=== PATIENT | male | born 1975 | race Caucasian/White ===

== ENCOUNTER 2017-09-19 13:38 | Emergency (ER) | payer BC ==
[~2017-09-19] VITALS: Ht 172.7 cm; Wt 72.0 kg
[2017-09-19 13:44] VITALS: BP 105/57; PULSE 88; RESP 18; TEMP 98.4; O2SAT 97
--- NOTE | 2017-09-19 14:45 | PD ---
HPI Chief Complaint: Cold / Flu Symptoms Time Seen by Provider: 14:33 Travel History International Travel<30 days: No Contact w/Intl Traveler<30days: No Traveled to known affect area: No History of Present Illness HPI 42-year-old male here with body ache, fever, cough 2 days. Symptom severity is moderate. No aggravating or alleviating factors. No sick contacts at home. PFSH Past Medical History Medical History: Denies Significant Hx Diminished Hearing: No Tetanus Vaccination: Unknown Influenza Vaccination: No ?: Not Past Surgical History Appendectomy: Yes Social History Alcohol Use: No Tobacco Use: No Substance Use: No Allergies-Medications (Allergen,Severity, Reaction): Coded Allergies: mushroom (Verified Allergy, Intermediate, HIVES, 09/19/17) Reported Meds & Prescriptions Reported Meds & Active Scripts Active No Active Prescriptions or Reported Medications Review of Systems Except as stated in HPI: all other systems reviewed are Neg General / Constitutional: Positive: Fever Eyes: No: Visual changes HENT: No: Headaches Cardiovascular: No: Chest Pain or Discomfort Respiratory: Positive: Cough Gastrointestinal: No: Abdominal Pain Genitourinary: No: Dysuria Musculoskeletal: Positive: Myalgias Skin: No Rash Neurologic: No: Weakness Physical Exam Narrative GENERAL: 42-year-old alert male. Nontoxic appearing. SKIN: Warm and dry. HEAD: Normocephalic. EYES: Pupils equal, round, reactive. No injection or drainage. THROAT: Mild pharyngeal erythema without tonsillar hypertrophy or exudate. NECK: Supple, trachea midline. No JVD or lymphadenopathy. No meningismus. CARDIOVASCULAR: Regular rate and rhythm without murmurs, gallops, or rubs. RESPIRATORY: Breath sounds equal bilaterally. No accessory muscle use. GASTROINTESTINAL: Abdomen soft, non-tender, nondistended. MUSCULOSKELETAL: No cyanosis, or edema. BACK: Nontender without obvious deformity. No CVA tenderness. Data Data Last Documented VS Vital Signs Date Time Temp Pulse Resp B/P (MAP) Pulse Ox O2 Delivery O2 Flow Rate FiO2 09/19/17 13:44 98.4 88 18 105/57 (73) 97 Orders Orders Influenzae A/B Antigen (09/19/17 14:32) MDM Medical Decision Making Medical Screen Exam Complete: Yes Emergency Medical Condition: Yes Interpretation(s) Influenza is negative Differential Diagnosis Influenza, viral URI, bronchitis, pneumonia Narrative Course 42 -year-old male here with flulike symptoms. Rapid influenza was negative. I strongly feel this is flu and will treat the patient Tamiflu. Diagnosis Primary Impression: Viral illness Referrals: [facility] Additional Instructions: Take [id number] ibuprofen 800 mg every 6 hours as needed for pain. take Tylenol as needed for fever and pain Rest and stay well hydrated. Scripts Oseltamivir (Tamiflu) 75 Mg Cap 75 MG PO BID for Mgmt Viral Infection for 5 Days, #10 CAP 0 Refills Prov: Leta Anand 09/19/17 Disposition: 01 DISCHARGE HOME Condition: Stable Leta Anand Sep 19, 2017 14:45
[2017-09-19] MEDS ORDERED: OSEL75 PO (15:13)
== END 2017-09-19 15:43 | disposition home or self-care (01) ==
LOC: PHEFT 13:38
DX: B34.9 Viral infection, unspecified (principal); Z91.018 Allergy to other foods
CPT/HCPCS: 87804; 99283